=== PATIENT | female | born 1980 | race Caucasian/White ===

== ENCOUNTER 2017-07-11 09:56 | Emergency (ER) | payer BC, SELFPAY ==
[2017-07-11 10:12] VITALS: BP 136/92; PULSE 79; RESP 20; TEMP 36.6; O2SAT 100; BMI 23.3
--- NOTE | 2017-07-11 10:30 | HMH.EDUTC ---
[facility] [place] Impression: Sinusitis Qualifiers: Sinusitis location: maxillary Chronicity: acute Recurrence: not specified as recurrent Qualified Code(s): J01.00 - Acute maxillary sinusitis, unspecified Disposition: Home, Self-Care Condition on Discharge: Good Instructions: DI for Sinusitis Additional Instructions: Rest, fluids. F/U with Dr Olsen if not improving. Prescriptions: Brompheniramine/Pseudoephed/Dm [Bromfed DM Cough Syrup 5mL] 5 - 10 ml PO Q4HP PRN 10 Days #240 syrup PRN Reason: Cough Fluticasone Propionate [Flonase Allergy Relief NS] 1 spray NS BID 10 Days #1 bot predniSONE [Prednisone 20mg Tab] 20 mg PO BID 5 Days #10 tab Referrals: Allen Olsen MD [Primary Care Provider] - Time of Disposition: 10:38 Medical Decision Making - Rehan Inquiry Pt receiving controlled substance: No Vital Signs: 07/11/17 10:12 Temperature 97.8 F Temperature Source Oral Pulse Rate [Right Radial] 79 Respiratory Rate 20 Blood Pressure [Right Arm] 136/92 Blood Pressure Mean [Right Arm] 106 02 Sat by Pulse Oximetry 100 Oxygen Delivery Method Room Air [facility] [place] - General Stated complaint: Poss Sinus Infection Time Seen by Provider: 07/11/17 10:23 Mode of Arrival: Family Vehicle Source of Information: Patient Limitations: No Limitations Description of Symptoms (Recalled from Triage Doc. by RN): PT C/O SINUS PROBLEMS,COUGH, SORE THROAT. HEENT Symptoms (Recalled from RN notes): Yes (SORE THROAT,SINUS DRAINAGE) Resp Symptoms (Recalled from RN notes): Yes (COUGH) Skin Symptoms (Recalled from RN notes): No MS Symptoms (Recalled from RN notes): No Functional Status (Recalled from RN notes): NA - History of Present Illness Provider Complaint: Cough, sinus pain and pressure, sore throat, shortness of breath X 2 days. Headache. Denies ear pain. Denies fever. No vomiting or diarrhea. Onset (ago): day(s) (2) Location: head Radiation: non-radiation Relieving factors: medication Exacerbating factors: none Associated symptoms: cough, malaise, shortness of breath Treatments prior to arrival: other (Dayquil) - Related Data Previous Rx's Medication Instructions Recorded Brompheniramine/Pseudoephed/Dm 5 - 10 ml PO Q4HP PRN 10 Days #240 07/11/17 [Bromfed DM Cough Syrup 5mL] syrup Fluticasone Propionate [Flonase 1 spray NS BID 10 Days #1 bot 07/11/17 Allergy Relief NS] predniSONE [Prednisone 20mg 20 mg PO BID 5 Days #10 tab 07/11/17 Tab] Allergies Allergy/AdvReac Type Severity Reaction Status Date / Time morphine Allergy Verified 07/11/17 10:16 Penicillins Allergy Verified 07/11/17 10:16 - Worker's Comp Is this a Worker's Comp case?: No [facility] History I have reviewed the patient's past medical history: Yes Medical History: Denies:: Cancer, Diabetes Mellitus Type 1, Diabetes Mellitus Type 2, MRSA Amputation: No - Social History Smoking Status: Never smoker Alcohol Intake: never - Psychiatric History Expresses thoughts of harming self/others: None Suicide Plan Description: No Plan ROS Obtained: Yes All systems reviewed & no additional complaints - Constitutional Constitutional: Reports fatigue, Denies fever(s), Reports malaise - ENT Ears, Nose, Mouth, and Throat: Reports headache(s), Reports nasal congestion, Reports nasal discharge, Reports nasal obstruction, Reports pain with swallowing, Reports sinus pain, Reports sinus pressure, Reports sore throat - Respiratory Respiratory: Yes cough Physical Exam - General General appearance: alert, in no apparent distress - Head Head exam: atraumatic, normocephalic, normal inspection - Eye Eye exam: Present: normal appearance, PERRL, EOMI - ENT ENT exam: Present: normal exam, normal oropharynx, mucous membranes moist, TM's normal bilaterally, normal external ear exam - Expanded ENT Exam TM/Canal exam: Bilateral TM: effusion Nose exam: Present: sinus tenderness - Neck Neck exam: Present: normal insp
--- NOTE | 2017-07-11 10:34 | ED_ITS ---
[facility] [place] Clinical Impression: Sinusitis Qualifiers: Sinusitis location: maxillary Chronicity: acute Recurrence: not specified as recurrent Qualified Code(s): J01.00 - Acute maxillary sinusitis, unspecified Disposition: Home, Self-Care Condition on Discharge: Good Instructions: DI for Sinusitis Additional Instructions: Rest, fluids. F/U with Dr Olsen if not improving. Prescriptions: Brompheniramine/Pseudoephed/Dm [Bromfed DM Cough Syrup 5mL] 5 - 10 ml PO Q4HP PRN 10 Days #240 syrup PRN Reason: Cough Fluticasone Propionate [Flonase Allergy Relief NS] 1 spray NS BID 10 Days #1 bot predniSONE [Prednisone 20mg Tab] 20 mg PO BID 5 Days #10 tab Referrals: Allen Olsen MD [Primary Care Provider] - Time of Disposition: 10:38 Medical Decision Making - Rehan Inquiry Pt receiving controlled substance: No Vital Signs: 07/11/17 10:12 Temperature 97.8 F Temperature Source Oral Pulse Rate [Right Radial] 79 Respiratory Rate 20 Blood Pressure [Right Arm] 136/92 Blood Pressure Mean [Right Arm] 106 02 Sat by Pulse Oximetry 100 Oxygen Delivery Method Room Air [facility] [place] HPI - General Stated complaint: Poss Sinus Infection Time Seen by Provider: 07/11/17 10:23 Mode of Arrival: Family Vehicle Source of Information: Patient Limitations: No Limitations Description of Symptoms (Recalled from Triage Doc. by RN): PT C/O SINUS PROBLEMS ,COUGH, SORE THROAT. HEENT Symptoms (Recalled from RN notes): Yes (SORE THROAT,SINUS DRAINAGE) Resp Symptoms (Recalled from RN notes): Yes (COUGH) Skin Symptoms (Recalled from RN notes): No MS Symptoms (Recalled from RN notes): No Functional Status (Recalled from RN notes): NA - History of Present Illness Provider Complaint: Cough, sinus pain and pressure, sore throat, shortness of breath X 2 days. Headache. Denies ear pain. Denies fever. No vomiting or diarrhea. Onset (ago): day(s) (2) Location: head Radiation: non-radiation Relieving factors: medication Exacerbating factors: none Associated symptoms: cough, malaise, shortness of breath Treatments prior to arrival: other (Dayquil) - Related Data Previous Rx's Medication Instructions Recorded Brompheniramine/Pseudoephed/Dm 5 - 10 ml PO Q4HP PRN 10 Days #240 07/11/17 [Bromfed DM Cough Syrup 5mL] syrup Fluticasone Propionate [Flonase 1 spray NS BID 10 Days #1 bot 07/11/17 Allergy Relief NS] predniSONE [Prednisone 20mg 20 mg PO BID 5 Days #10 tab 07/11/17 Tab] Allergies Allergy/AdvReac Type Severity Reaction Status Date / Time morphine Allergy Verified 07/11/17 10:16 Penicillins Allergy Verified 07/11/17 10:16 - Worker's Comp Is this a Worker's Comp case?: No H History I have reviewed the patient's past medical history: Yes Medical History: Denies:: Cancer, Diabetes Mellitus Type 1, Diabetes Mellitus Type 2, MRSA Amputation: No - Social History Smoking Status: Never smoker Alcohol Intake: never - Psychiatric History Expresses thoughts of harming self/others: None Suicide Plan Description: No Plan ROS Obtained: Yes All systems reviewed & no additional complaints - Constitutional Constitutional: Reports fatigue, Denies fever(s), Reports malaise - ENT Ears, Nose, Mouth, and Throat: Reports headache(s), Reports nasal congestion, Reports nasal discharge, Reports nasal obstr
[2017-07-11 10:57] VITALS: BP 130/85; PULSE 82; RESP 18; TEMP 36.7; O2SAT 100
== END 2017-07-11 10:45 | disposition home or self-care (01) ==
PROVIDERS: Emergency Provider Physician Assistant; Family Provider Internal Medicine Adolescent Medicine; PCP Internal Medicine Adolescent Medicine
DX: J01.00 Acute maxillary sinusitis, unspecified (principal)
CPT/HCPCS: 99201

== ENCOUNTER → 2018-02-14 12:35 | Outpatient (CLI) | payer BC, SELFPAY ==
--- NOTE | 2018-02-14 12:40 | US_ITS ---
US transvaginal HISTORY: Pelvic pain, left lower quadrant pain ITS.REASON: pelvic pain ORDERING PHYSICIAN: Charlie Collado MD PATIENT AGE: 37 years Last menstrual period: 01/31/2018 FINDINGS: The uterus is 8 x 3.5 x 4.2 cm with a combined endometrial thickness of 8 mm. No uterine abnormality is evident. There are small nabothian cyst present. The left ovary is 3.2 x 2 cm and contains a 2 cm cyst. The right ovary is 2.3 x 1.6 cm and has an unremarkable appearance. No cul-de-sac fluid apparent. IMPRESSION: 2 cm left ovarian cyst otherwise negative pelvic ultrasound
== END ==
PROVIDERS: Family Provider Internal Medicine Adolescent Medicine; PCP Internal Medicine Adolescent Medicine; Visit Provider Obstetrics & Gynecology
DX: R10.2 Pelvic and perineal pain (principal)
CPT/HCPCS: 76830

== ENCOUNTER → 2018-06-21 09:27 | Outpatient (CLI) | payer BC, SELFPAY ==
[2018-06-21 09:48] LABS: Basophils % 0.4 % (0.1-2.0); Eosinophils # 0.1 K/mm3 (0.0-0.4); Hematocrit 37.1 % (37.0-47.0); Hemoglobin 12.1 g/dL (12.2-16.2); Lymphocytes # 1.3 K/mm3 (0.7-4.5); Lymphocytes % 24.8 % (10-50); Mean Corpuscular HGB Conc 32.7 g/dL (31.8-35.4); Mean Corpuscular Hemoglobin 25.5 pg (27.0-31.2); Mean Corpuscular Volume 78.2 fl (81-99); Mean Platelet Volume 7.7 fl (7.4-10.4); Monocytes # 0.3 K/mm3 (0.1-1.0); Monocytes % 4.7 % (1.7-9.3); Neutrophils # 3.7 K/mm3 (1.8-7.8); Neutrophils % 68.1 % (37.0-80.0); Platelet Count 191 K/mm3 (142-424); Red Blood Count 4.74 M/mm3 (4.20-5.40); Red Cell Distribution Width 14.9 % (11.5-17.5); White Blood Count 5.4 K/mm3 (4.8-10.8)
[2018-06-21 10:56] LABS: Thyroid Stimulating Hormone 1.61 uIU/ml (0.358-3.740)
[2018-06-22 06:15] LABS: DHEA-Sulfate 323.3 ug/dL (57.3-279.2); Prolactin 18.5 ng/mL (4.8-23.3)
[2018-06-22 08:10] LABS: Estradiol 108.9 pg/mL (.)
[2018-06-23 07:32] LABS: Testosterone,Free 2.2 pg/mL (0.0-4.2)
== END ==
PROVIDERS: Visit Provider Obstetrics & Gynecology
DX: N97.9 Female infertility, unspecified (principal)
CPT/HCPCS: 36415; 82626; 82670; 83002; 84146; 84402; 84443; 85025

== ENCOUNTER → 2018-07-04 14:29 | Outpatient (CLI) | payer BC, SELFPAY ==
[2018-07-06 08:31] LABS: DHEA-Sulfate 288.7 ug/dL (57.3-279.2)
[2018-07-06 15:01] LABS: FSH 8.6 mIU/mL (.)
== END ==
PROVIDERS: Visit Provider Obstetrics & Gynecology
DX: N97.9 Female infertility, unspecified (principal)
CPT/HCPCS: 36415; 82626; 83001; 83002

== ENCOUNTER → 2018-07-18 09:24 | Outpatient (CLI) | payer BC, SELFPAY ==
--- NOTE | 2018-07-18 09:30 | CT_ITS ---
CT abdomen pelvis wo/w con CLINICAL INDICATION: Elevated DHEA levels ITS.REASON: infertility ORDERING PHYSICIAN: Charlie Collado MD PATIENT AGE: 38 years COMPARISON: None TECHNIQUE: Axial images obtained without and with contrast with sagittal and coronal reformats. All CT scans at the facility use one or more dose reduction, viz: automated exposure control, ma/kV adjustment per patient size (including targeted exams where dose is matched to indication, i.e. head), or iterative reconstruction technique. PROCEDURE: Oral Contrast: None IV Contrast: 75 mL's Optiray 350. FINDINGS: No acute finding in the lung bases. The liver, spleen, adrenal glands, gallbladder, and pancreas have an unremarkable appearance. No renal or ureteral calculi. No hydronephrosis. No evidence of appendicitis, intestinal obstruction, or free air.. No abnormal fluid collections are evident. The cervix is somewhat prominent and there is also prominence of the hypoattenuating endometrial canal. Please correlate with gynecological exam and patient's phase of menstruation. There is a small left ovarian cyst at 2 cm. Uterus is anteverted. No acute bony anomalies are evident. IMPRESSION: 1. No acute abdominal findings. 2. No evidence of adrenal nodule or mass. 3. Mild prominence of the cervix and prominent hypoattenuation of the endometrial canal. Please correlate with patient's gynecological exam and phase of menstruation. The uterus is anteverted.
== END ==
PROVIDERS: PCP Family Medicine; Visit Provider Obstetrics & Gynecology
DX: E27.49 Other adrenocortical insufficiency (principal)
CPT/HCPCS: 74178; Q9967

== ENCOUNTER → 2019-01-10 12:51 | Outpatient (CLI) | payer BC, SELFPAY ==
--- NOTE | 2019-01-10 12:52 | US_ITS ---
PROCEDURE: US TRANSVAGINAL CLINICAL INDICATION: dub, pelvic pain Dysfunctional uterine bleeding COMPARISON: TRANVAG US transvaginal from 02/14/2018 FINDINGS: The uterus is 8.5 x 3.7 x 5 cm with a combined endometrial thickness of 8 mm. No mass evident. Homogeneous echogenicity of the uterus. The right ovary is 2.8 x 1.9 cm and contains a 1.7 cm cyst. The left ovary has an unremarkable appearance at 2.6 x 1.9 cm. No cul-de-sac fluid. IMPRESSION: Small right ovarian cyst otherwise negative pelvic ultrasound Dictated by: Diallo Marmolejo MD 01/10/2019 17:37 Electronically signed by Diallo Marmolejo MD in [place] 01/10/2019 17:37
== END ==
PROVIDERS: PCP Family Medicine; Visit Provider Obstetrics & Gynecology
DX: N93.8 Other specified abnormal uterine and vaginal bleeding (principal)
CPT/HCPCS: 76830

== ENCOUNTER 2021-05-26 08:59 | Emergency (ER) | payer BC, SELFPAY ==
[2021-05-26 09:10] VITALS: BP 134/91; PULSE 69; RESP 18; TEMP 36.6; O2SAT 99; BMI 22.6
--- NOTE | 2021-05-26 09:41 | HMH.EDUTC ---
[facility] [place] Disposition Clinical Impression: Vertigo Disposition: Home, Self-Care Condition on Discharge: Good Instructions: Vertigo, Meclizine Additional Instructions: *Monitor Temp, Over the counter Motrin or Tylenol as directed/as needed Tylenol every 4 hours and Motrin every 6 hours (as long as your family doctor has told you that you can take it) for fever or pain. and straight to ER if unable to lower temp less than 101.0 after medication given *Warm salt water gargles may help to soothe the throat *Throat Lozenges *Warm fluids like tea with honey may help to soothe the throat *Sleep elevated *Humidifier/Vaporizer Your throat swab was sent for culture. Those results are typically sent to your primary care. Be sure to follow up in 2-3 days with your family doctor/primary care physician if no improvement so they can review those result and treat if necessary. If you don?t have a primary care doctor, I recommend you get one but in the mean time, you will have to return to a walk in clinic Follow up IMMEDIATELY for new or worsening symptoms or no Noticeable improvement over the next 48-72 hours. 911 for difficulty breathing or swallowing You were tested for today for COVID19 your test result should be back in the next 24-72 hours, you may check your results on the [facility] My Health Portal If you have trouble logging on you may call support If you are positive someone from the Hospital will be calling you Make sure to take your Vitamins Vit. C Vit D and Zinc if you can take them Prescriptions: Meclizine HCl [Antivert 25mg tablet] 25 mg PO Q8HP PRN #15 tab PRN Reason: Vertigo Transmission Status: Received by [id number] methylPREDNISolone [Medrol 4mg tab] 4 mg PO DIRECTED #21 tab Transmission Status: Received by [id number] Azithromycin [Z-Lyle 250mg Tab] 250 mg PO DIRECTED #6 tab Transmission Status: Received by [id number] Ondansetron [Zofran 4mg ODT] 4 mg PO TIDP PRN #9 tab PRN Reason: Nausea Transmission Status: Received by [id number] Referrals: Eliud Greenwood [Primary Care Provider] - As needed Forms: Work/School Release Medical Decision Making - Rehan Inquiry Pt receiving controlled substance: No Rehan was queried for this patient: No Vital Signs: 05/26/21 09:10 05/26/21 10:15 Temperature 97.9 F 97.9 F Temperature Source Oral Pulse Rate 69 Pulse Rate [Right Brachial] 69 Respiratory Rate 18 18 Blood Pressure 134/91 H Blood Pressure [Right Arm] 134/91 H Blood Pressure Mean [Right Arm] 105 Blood Pressure Source [Right Arm] Automatic Cuff Blood Pressure Position [Right Arm] Sitting 02 Sat by Pulse Oximetry 99 Oxygen Delivery Method Room Air Orders (Tests/Meds): ED MEDICATIONS Discontinued Medications Generic Name Dose Route Start Last Admin Trade Name Freq PRN Reason Stop Dose Admin Meclizine HCl 25 mg 05/26/21 09:42 05/26/21 09:47 Meclizine 25mg Tablet PO 05/26/21 09:43 25 mg ONCE ONE Administration Medical Decision Narrative: Denies Patient state that vertigo/dizziness is much improved after medicaiton Discussed with patient about transfer to the ED for further work up and evaluation and patient declined states that she is feeling better and will return to ED if any worsening of symptoms Family aware of risks and advised they would stay with her an bring her back if any changes in symptoms or behavior [facility] [place] HPI - General Stated complaint: dizzy, nausea Time Seen by Provider: 05/26/21 09:41 Mode of Arrival: Ambulatory Source of Information: Patient, Spouse Limitations: No Limitations Description of Symptoms (Recalled from Triage Doc. by RN): PATIENT C/O DIZZINESS AND NAUSEA SINCE THIS MORNING HEENT Symptoms (Recalled from RN notes): Yes Resp Symptoms (Recalled from RN notes): No Skin Symptoms (Recalled from RN notes): No MS Symptoms (Recalled from RN notes): No Functional Status (Recalled from RN notes): W
[2021-05-26 10:15] VITALS: BP 134/91; PULSE 69; RESP 18; TEMP 36.6; O2SAT 99
== END 2021-05-26 10:43 | disposition home or self-care (01) ==
PROVIDERS: Emergency Provider Nurse Practitioner; PCP Family Medicine
DX: R42 Dizziness and giddiness (principal)
CPT/HCPCS: 99202; G0463

== ENCOUNTER 2021-11-15 11:22 | Emergency (ER) | payer BC, SELFPAY ==
--- NOTE | 2021-11-15 11:50 | HMH.EDGENADL ---
ED Disposition Clinical Impression: Upper abdominal pain Gastritis Qualifiers: Gastritis type: unspecified gastritis Chronicity: acute Gastritis bleeding: without bleeding Qualified Code(s): K29.00 - Acute gastritis without bleeding Disposition: Home, Self-Care Condition on Discharge: Good Instructions: DI for Gastritis, DI for Gastric Ulcer, DI for Acute Abdominal Pain Additional Instructions: You have been evaluated for abdominal pain. You have been diagnosed with gastritis, inflammation of the stomach lining. Please start taking omeprazole. Gastritis possibly due to an ulcer. Please follow-up with your primary care doctor in 1 to 2 days for symptom recheck. Follow-up with gastroenterology when available, you may need upper endoscopy. Return to the emergency department at once for any new or worsening symptoms, pain, fever, vomiting, other concerns. Prescriptions: Omeprazole [Omeprazole 20mg Capsule] 20 mg PO DAILY #30 cap Transmission Status: Received by [id number] Referrals: Eliud Greenwood [Primary Care Provider] - Time of Disposition: 13:29 - Critical Care Critical Care Time: No Attestation: On 11/15/21, the high probability of a clinically significant, sudden or life threatening deterioration of the following system(s) required my full and direct attention, intervention and personal management. The time I documented below is in addition to time spent performing reported procedures but includes the following listed in this critical care notation. Medical Decision Making - Medical Records Medical records reviewed: Yes: I reviewed the patient's medical records. - Rehan Inquiry Pt receiving controlled substance: No Vital Signs: 11/15/21 11:52 11/15/21 11:56 11/15/21 12:00 Temperature 98.1 F Temperature Source Oral Pulse Rate 73 79 Pulse Rate [Left Radial] 89 Respiratory Rate 16 18 18 Blood Pressure 138/95 H 124/89 Blood Pressure [Left Arm] 138/95 H Blood Pressure Mean 109 99 Blood Pressure Mean [Left Arm] 109 Blood Pressure Source [Left Arm] Automatic Cuff Blood Pressure Position [Left Arm] Sitting 02 Sat by Pulse Oximetry 100 100 99 Oxygen Delivery Method Room Air 11/15/21 13:00 11/15/21 14:00 Temperature Temperature Source Pulse Rate 68 69 Pulse Rate [Left Radial] Respiratory Rate 18 18 Blood Pressure 114/88 110/72 Blood Pressure [Left Arm] Blood Pressure Mean 97 84 Blood Pressure Mean [Left Arm] Blood Pressure Source [Left Arm] Blood Pressure Position [Left Arm] 02 Sat by Pulse Oximetry 99 100 Oxygen Delivery Method - Lab Data Lab Results 11/15/21 11:50: WBC 10.2, RBC 5.70 H, Hgb 16.6 H, Hct 47.1 H, MCV 82.6, MCH 29.1, MCHC 35.2, RDW 12.0, Plt Count 216, MPV 7.6, Neut % (Auto) 81.1 H, Lymph % (Auto) 12.5, Carlton % (Auto) 4.0, Eos % (Auto) 1.6, Baso % (Auto) 0.8, Neut # (Auto) 8.3 H, Lymph # (Auto) 1.3, Carlton # (Auto) 0.4, Eos # (Auto) 0.2, Baso # (Auto) 0.1 11/15/21 11:50: Sodium 139, Potassium 4.1, Chloride 107, Carbon Dioxide 23, Anion Gap 13.1, BUN 13, Creatinine 0.80, Estimated Creat Clear 101, Estimated GFR 79, Est GFR ( Amer) 96, Glucose 112 H, Calcium 9.3, Total Bilirubin 1.2, AST 63 H, ALT 31, Alkaline Phosphatase 49, Total Protein 7.5, Albumin 4.6, Globulin 2.9, Albumin/Globulin Ratio 1.6, Lipase 92 11/15/21 11:50: Serum HCG, Qual Negative 11/15/21 12:25: SARS-CoV-2 (PCR) Not detected, Influenza A Untype (PCR) Not detected, Influenza Type B (PCR) Not detected Result diagrams: 11/15/21 11:50 11/15/21 11:50 Orders (Tests/Meds): ED MEDICATIONS Discontinued Medications Generic Name Dose Route Start Last Admin Trade Name Freq PRN Reason Stop Dose Admin Hydromorphone HCl 0.5 mg 11/15/21 11:53 11/15/21 11:59 Hydromorphone 2mg/Ml Syringe IV 11/15/21 11:54 0.5 mg ONCE ONE Administration Sodium Chloride 1,000 mls @ 999 mls/hr 11/15/21 12:00 11/15/21 11:59 Sod Chlor 0.9% 1000ml Bag IV 11/15/21 13:
[2021-11-15 11:52] VITALS: BP 138/95; PULSE 89; RESP 16; TEMP 36.7; O2SAT 100; BMI 24.3
[2021-11-15 11:56] VITALS: BP 138/95; PULSE 73; RESP 18; O2SAT 100
[2021-11-15 11:56] LABS: Basophils # 0.1 K/mm3 (0-0.2); Basophils % 0.8 % (0.1-2.0); Eosinophils # 0.2 K/mm3 (0.0-0.4); Eosinophils % 1.6 % (0.1-12.0); Hematocrit 47.1 % (37.0-47.0); Hemoglobin 16.6 g/dL (12.2-16.2); Lymphocytes # 1.3 K/mm3 (0.7-4.5); Lymphocytes % 12.5 % (10-50); Mean Corpuscular HGB Conc 35.2 g/dL (31.8-35.4); Mean Corpuscular Hemoglobin 29.1 pg (27.0-31.2); Mean Corpuscular Volume 82.6 fl (81-99); Mean Platelet Volume 7.6 fl (7.4-10.4); Monocytes # 0.4 K/mm3 (0.1-1.0); Neutrophils # 8.3 K/mm3 (1.8-7.8); Neutrophils % 81.1 % (37.0-80.0); Platelet Count 216 K/mm3 (142-424); White Blood Count 10.2 K/mm3 (4.8-10.8)
[2021-11-15 12:00] VITALS: BP 124/89; PULSE 79; RESP 18; O2SAT 99
[2021-11-15 12:00] LABS: Chloride 107 mmol/L (98-107)
--- NOTE | 2021-11-15 12:00 | PC.NURSE ---
pr brought over from [facility] to room 10 in the ed. at the bedside on arrival for eval.
[2021-11-15 12:01] LABS: Potassium 4.1 mmoL/L (3.5-5.1); Sodium 139 mmol/L (136-145)
[2021-11-15 12:02] LABS: Albumin Level 4.6 g/dl (3.5-5.0)
[2021-11-15 12:03] LABS: Alanine Aminotransferase 31 U/L (12-78); Aspartate Amino Transferase 63 U/L (14-36); Blood Urea Nitrogen 13 mg/dl (7-17); Creatinine Clearance Estimated 101 mL/min (50-200); Estimated Glomerular Filt Rate 79 ml/min (>60); GFR (African American) 96 ML/MIN (>60)
[2021-11-15 12:04] LABS: Albumin/Globulin Ratio 1.6 (1.1-1.8); Alkaline Phosphatase 49 U/L (38-126); Anion Gap 13.1 mEq/L (5-15); Bilirubin,Total 1.2 mg/dl (0.2-1.3); Calcium 9.3 mg/dl (8.4-10.2); Carbon Dioxide 23 mmol/L (22.0-30.0); Globulin 2.9 g/dL (1.3-3.2); Glucose 112 mg/dl (74-100); Lipase 92 U/L (23-300); Total Protein,Serum 7.5 g/dl (6.3-8.2)
--- NOTE | 2021-11-15 12:04 | PC.NURSE ---
PT WAS GIVEN TORADOL AND ZOFRAN FOR PAIN PT WAS STILL YELLING OUT IN PAIN SO VERBAL ORDER TO GIVE DILAUDID 0.5MG IV AFTER THAT PT RESTING MORE QUIETLY FAMILY AT BS
[2021-11-15 12:07] LABS: HCG Qualitative, Serum Negative (Negative)
--- NOTE | 2021-11-15 12:14 | CT_ITS ---
PROCEDURE INFORMATION: Exam: CT Abdomen And Pelvis With Contrast Exam date and time: 11/15/2021 12:18 PM Age: 41 years old Clinical indication: Abdominal pain; Generalized; Additional info: Upper abdominal pain TECHNIQUE: Imaging protocol: Computed tomography of the abdomen and pelvis with contrast. Radiation optimization: All CT scans at this facility use at least one of these dose optimization techniques: automated exposure control; mA and/or kV adjustment per patient size (includes targeted exams where dose is matched to clinical indication); or iterative reconstruction. Contrast material: ISOVUE; Contrast volume: 75 ml; Contrast route: IV; COMPARISON: [id number] CT abdomen pelvis wo/w con 07/18/2018 10:02 AM FINDINGS: Lungs: Hyperinflation , mild interstitial prominence, and chronic granulomatous disease. Liver: No focal hepatic mass. Gallbladder and bile ducts: Unremarkable gallbladder. Pancreas: Mild pancreatic ductal dilatation, without focal mass. Spleen: Spleen upper limits of normal size. Adrenal glands: Unremarkable adrenals. Kidneys and ureters: 8 mm left renal cyst, with an additional 3 mm nodular hypodensity in the inferior left kidney. No hydronephrosis. Stomach and bowel: Gastric wall thickening, which can be better evaluated with endoscopy if clinically indicated. Small bowel wall thickening in a pattern of enteritis. Prominent stool. Diverticula, without pericolonic inflammation. Appendix: No acute appendicitis. Intraperitoneal space: Mesenteric edema and intraperitoneal fluid. Vasculature: Normal caliber of the abdominal aorta. Lymph nodes: Subcentimeter lymph nodes. Urinary bladder: Normal bladder morphology. Reproductive: Involuted 1.3 cm left ovarian cyst. Bones/joints: Marginal osteophytes. 6 mm bone island in the left ilium. Soft tissues: Injection granuloma. IMPRESSION: 1. Gastric wall thickening, which can be better evaluated with endoscopy if clinically indicated. 2. Small bowel wall thickening in a pattern of enteritis. 3. Mesenteric edema and intraperitoneal fluid. 4. Additional findings as described above. COMMENTS: Consistent with the [employer]'s Incidental Findings Committee white paper (J Am Montserrat Radiol 2018): Any incidental renal lesion less than 1 cm or classified as too small to characterize, or any incidental cystic renal lesion characterized as simple-appearing, is likely benign. No follow-up imaging is recommended for these lesions per consensus recommendations based on imaging criteria.
--- NOTE | 2021-11-15 12:27 | PC.NURSE ---
COVID swab sent to lab. Pt to CT via w/c. Pt states that meds have helped her pain and nausea.
[2021-11-15 12:33] LABS: Coronavirus 19, PCR Not Detected (NotDetected); Influenza A, PCR Not Detected (NotDetected); Influenza B, PCR Not Detected (NotDetected)
--- NOTE | 2021-11-15 12:36 | PC.NURSE ---
Pt has returned from CT. [employer] placed pt back on monitor.
[2021-11-15 13:00] VITALS: BP 114/88; PULSE 68; RESP 18; O2SAT 99
[2021-11-15 14:00] VITALS: BP 110/72; PULSE 69; RESP 18; O2SAT 100
[2021-11-15 14:38] VITALS: BP 112/80; PULSE 67; RESP 18; TEMP 36.7; O2SAT 100
== END 2021-11-15 14:43 | disposition home or self-care (01) ==
LOC: UTC 11:25 → ER 11:48
PROVIDERS: Emergency Provider Emergency Medicine; PCP Family Medicine
DX: K29.00 Acute gastritis without bleeding (principal); R10.10 Upper abdominal pain, unspecified
CPT/HCPCS: 74177; 80053; 83690; 84703; 85025; 96361; 96374; 96375; 99284; C9803; J2405; Q9967; U0003; U0005

== ENCOUNTER 2022-10-10 12:44 | Emergency (ER) | payer BC, SELFPAY ==
[2022-10-10] VITALS (10 sets, daily range): BP systolic 109–148; BP diastolic 69–97; PULSE 56–86; RESP 16–20; TEMP 36.4–36.6; O2SAT 96–100; BMI 25.8
--- NOTE | 2022-10-10 12:59 | CT_ITS ---
PROCEDURE INFORMATION: Exam: CT Abdomen And Pelvis With Contrast Exam date and time: 10/10/2022 1:49 PM Age: 42 years old Clinical indication: Nausea and other: Diarrhea; Prior surgery; Surgery date: <1 month; Surgery type: Partial colectomy 3 weeks ago; Additional info: Abdominal pain, nausea, diarrhea TECHNIQUE: Imaging protocol: Computed tomography of the abdomen and pelvis with contrast. Radiation optimization: All CT scans at this facility use at least one of these dose optimization techniques: automated exposure control; mA and/or kV adjustment per patient size (includes targeted exams where dose is matched to clinical indication); or iterative reconstruction. Contrast material: ISOVUE; Contrast volume: 75 ml; Contrast route: IV; REPORTING DATA: Count of CT and Cardiac NM exams in prior 12 months: This patient has received [address] and 0 known cardiac nuclear medicine studies in the 12 months prior to the current study. COMPARISON: CT ABDOMEN PELVIS W CON 11/15/2021 12:18 PM FINDINGS: Liver: Normal. No mass. Gallbladder and bile ducts: Normal. No calcified stones. No ductal dilation. Pancreas: Normal. No ductal dilation. Spleen: Normal. No splenomegaly. Adrenal glands: Normal. No mass. Kidneys and ureters: Normal. No hydronephrosis. Stomach and bowel: Postsurgical changes compatible with partial large bowel resection. Mild pericolonic fat stranding in postsurgical region without discrete fluid collection. Nonobstructive bowel gas pattern. Appendix: No evidence of appendicitis. Intraperitoneal space: Unremarkable. No free air. No significant fluid collection. Vasculature: Unremarkable. No abdominal aortic aneurysm. Lymph nodes: Reactive retroperitoneal/mesenteric lymph nodes without lymphadenopathy. Urinary bladder: Unremarkable as visualized. Reproductive: Unremarkable as visualized. Bones/joints: Unremarkable. No acute fracture. Soft tissues: Unremarkable. IMPRESSION: 1. Mild postsurgical changes. 2. Reactive lymph nodes without lymphadenopathy.
--- NOTE | 2022-10-10 13:08 | HMH.EDGENADL ---
Discharge Plan Disposition Patient Disposition: Home, Self-Care Condition: Fair Prescriptions Prescriptions: New dicyclomine 20 mg tablet 20 mg PO QID PRN (Reason: abdominal pain) Qty: 14 0RF ondansetron 4 mg tablet,disintegrating 4 mg PO Q6H PRN (Reason: nausea and vomiting) Qty: 10 0RF No Action amitriptyline 10 mg tablet 10 mg PO DAILY losartan 50 mg tablet 50 mg PO DAILY Label Comments: TAKE 1 TABLET BY MOUTH EVERY DAY norethindrone-e.estradiol-iron 1 mg-10 mcg (24)/10 mcg (2) tablet 1 tab PO DAILY Qty: 28 11RF Referrals Follow up/Referrals: Eliud Greenwood MD [Primary Care Provider] - See instructions Activity Restrictions/Add. Instructions Additional Instructions/Restrictions: You have been evaluated for lower abdominal pain. This is possibly due to inflammation, after surgery. Also possibly due to viral illness. Please monitor your symptoms closely. [place] diet. Take Bentyl for cramps. Zofran for nausea. Follow-up with your primary care doctor and your primary colorectal surgeon. Return to the emergency department at once if pain returns or if you develop fevers, chills, nausea, vomiting, any other concerns. Clinical Impressions Clinical Impression: Intermittent lower abdominal pain, Post-operative pain Instructions Patient Instructions: DI for Acute Abdominal Pain Discharge ED Provider: Joy Padilla Adult HPI General Chief complaint: Abdominal Pain Stated complaint: abd pain,diarrhea, colon janett September 15 Time Seen by Provider: 10/10/22 12:46 Mode of Arrival: Wheelchair Source of Information: Patient Limitations: No Limitations Description of Symptoms (Recalled from ER Triage Doc. by RN): pt to the ED with severe lower abd. pain, nausea and diarrhea since wednesday. pt recently had a laproscropic colon resection on 09/15. History of Present Illness HPI narrative: 42-year-old female presenting to the emergency department abdominal pain. Pain started initially on , 2 days ago. It was described as cramping, intermittent. Over the last day, the pain has become much worse. It is now located in the lower abdomen, midline and radiating to both sides. Pain is sharp, cramping. She had diarrhea. No nausea, vomiting. No fevers, chills, cough, shortness of breath. She has a history of colon cancer, had a partial colectomy on 09/15/2022 at [facility] in [place]. Did well postoperatively. Is now eating a normal diet. Related Data Home Medications Medication Instructions Recorded Confirmed amitriptyline 10 mg tablet 10 mg PO DAILY MIGRAINES 02/15/20 05/26/22 losartan 50 mg tablet 50 mg PO DAILY 05/26/22 05/26/22 Previous Rx's Medication Instructions Recorded norethindrone 1 mg-ethinyl 1 tab PO DAILY #28 tabs 05/26/22 estradiol 10 mcg (24)-iron 10 mcg(2) tablet dicyclomine 20 mg tablet 20 mg PO QID PRN abdominal pain 10/10/22 #14 tabs ondansetron 4 mg disintegrating 4 mg PO Q6H PRN nausea and 10/10/22 tablet vomiting #10 tabs Allergies Allergy/AdvReac Type Severity Reaction Status Date / Time morphine Allergy Verified 05/26/22 14:52 Penicillins Allergy Verified 05/26/22 14:52 [facility] Disclaimer: The information contained in this section may have been updated after the patient was seen, as this information can be updated by other users. Medical History (Updated 10/10/22 @ 17:56 by Joy Padilla DO) High blood pressure Hx of migraines Surgical History (Updated 05/26/22 @ 15:16 by Micheline Barrios MD) H/O LEEP [place] teeth extracted Family History Mother Cancer Other Diabetes Social History Smoking Status: Never smoker alcohol intake: never substance use type: denies use current occupational status: other Travel in the last 8 weeks: None ROS Obtained: Yes All systems reviewed & no additional com
[2022-10-10 13:15] LABS: Basophils % 0.3 % (0.1-2.0); Eosinophils # 0.2 K/mm3 (0.0-0.4); Eosinophils % 2.1 % (0.1-12.0); Hematocrit 44.4 % (37.0-47.0); Hemoglobin 14.5 g/dL (12.2-16.2); Lymphocytes # 1.9 K/mm3 (0.7-4.5); Lymphocytes % 19.4 % (10-50); Mean Corpuscular HGB Conc 32.7 g/dL (31.8-35.4); Mean Corpuscular Hemoglobin 27.7 pg (27.0-31.2); Mean Corpuscular Volume 84.5 fl (81-99); Monocytes # 0.5 K/mm3 (0.1-1.0); Monocytes % 5.3 % (1.7-9.3); Neutrophils # 7.2 K/mm3 (1.8-7.8); Neutrophils % 72.9 % (37.0-80.0); Platelet Count 246 K/mm3 (142-424); Red Blood Count 5.25 M/mm3 (4.20-5.40); Red Cell Distribution Width 12.5 % (11.5-17.5); White Blood Count 9.9 K/mm3 (4.8-10.8)
[2022-10-10 13:20] LABS: Alanine Aminotransferase 28 U/L (12-78); Albumin Level 4.5 g/dl (3.5-5.0); Albumin/Globulin Ratio 1.5 (1.1-1.8); Alkaline Phosphatase 60 U/L (38-126); Anion Gap 17.9 mEq/L (5-15); Aspartate Amino Transferase 63 U/L (14-36); Bilirubin,Total 0.9 mg/dl (0.2-1.3); Blood Urea Nitrogen 9 mg/dl (7-17); Calcium 8.8 mg/dl (8.4-10.2); Carbon Dioxide 22 mmol/L (22.0-30.0); Chloride 103 mmol/L (98-107); Creatinine Clearance Estimated 106 mL/min (50-200); Estimated Glomerular Filt Rate 79 ml/min (>60); GFR (African American) 96 ML/MIN (>60); Glucose 81 mg/dl (74-100); Lipase 106 U/L (23-300); Potassium 3.9 mmoL/L (3.5-5.1); Sodium 139 mmol/L (136-145); Total Protein,Serum 7.5 g/dl (6.3-8.2)
[2022-10-10 13:25] LABS: Lactic Acid 3.1 mmol/L (0.7-2.1)
[2022-10-10 13:26] LABS: Microscopic, Urine URINE MICROSCOPIC (MICROSCOPIC)
[2022-10-10 13:28] LABS: Appearance,Urine CLEAR (Clear); Bilirubin,Urine Negative (Negative); Blood, Urine 1+ (Negative); Color,Urine YELLOW (Yellow); Glucose,Urine (UA) Negative (Negative); Ketones,Urine Negative (Negative); Leukocyte Esterase,Urine Negative (Negative); Nitrate,Urine Negative (Negative); Protein,Urine Negative (Negative); Specific Gravity, Urine 1.025 (1.005-1.030); Urobilinogen,Urine 0.2 EU/dl (0.2)
[2022-10-10 13:40] LABS: HCG Qualitative, Serum Negative (Negative)
[2022-10-10 13:42] LABS: Bacteria,Urine Trace /lpf; Squamous Epithelial Cell,Urine Occasional #/hpf (0-5)
--- NOTE | 2022-10-10 15:03 | PC.NURSE ---
placed call to [facility] for Dr Feliz with colorectal. images were power shared
--- NOTE | 2022-10-10 15:26 | PC.NURSE ---
Dr Padilla speaking with Dr Feliz at [facility]
--- NOTE | 2022-10-10 16:31 | PC.NURSE ---
LACTIC DRAWN AND SENT TO LAB
[2022-10-10 17:11] LABS: Reflex Lactic Add Lactic Reflex
[2022-10-10 17:20] LABS: Lactic Acid Follow Up (RFLX 1) 0.8 mmol/L (0.7-2.1)
== END 2022-10-10 18:10 | disposition home or self-care (01) ==
PROVIDERS: Emergency Provider Emergency Medicine; PCP Family Medicine
DX: R10.30 Lower abdominal pain, unspecified (principal); G89.18 Other acute postprocedural pain; R11.0 Nausea; R19.7 Diarrhea, unspecified
CPT/HCPCS: 74177; 80053; 81001; 83605; 83690; 84703; 85025; 87045; 96374; 96375; 99285; J2405; Q9967

== ENCOUNTER 2023-04-30 12:09 | Outpatient (CLI) | payer BC, SELFPAY ==
[2023-04-30 12:50] LABS: Basophils # 0.1 K/mm3 (0-0.2); Basophils % 1.2 % (0.1-2.0); Eosinophils # 0.2 K/mm3 (0.0-0.4); Eosinophils % 2.5 % (0.1-12.0); Hematocrit 45.3 % (37.0-47.0); Hemoglobin 15.6 g/dL (12.2-16.2); Lymphocytes # 2.2 K/mm3 (0.7-4.5); Lymphocytes % 32.1 % (10-50); Mean Corpuscular HGB Conc 34.4 g/dL (31.8-35.4); Mean Corpuscular Hemoglobin 29.9 pg (27.0-31.2); Mean Corpuscular Volume 86.8 fl (81-99); Mean Platelet Volume 8.8 fl (7.4-10.4); Monocytes # 0.3 K/mm3 (0.1-1.0); Monocytes % 3.8 % (1.7-9.3); Neutrophils # 4.1 K/mm3 (1.8-7.8); Neutrophils % 60.5 % (37.0-80.0); Platelet Count 190 K/mm3 (142-424); Red Blood Count 5.22 M/mm3 (4.20-5.40); Red Cell Distribution Width 12.5 % (11.5-17.5); White Blood Count 6.8 K/mm3 (4.8-10.8)
[2023-04-30 12:51] LABS: Chloride 104 mmol/L (98-107)
[2023-04-30 12:52] LABS: Potassium 3.9 mmoL/L (3.5-5.1); Sodium 138 mmol/L (136-145)
[2023-04-30 12:54] LABS: Alanine Aminotransferase 24 U/L (12-78); Aspartate Amino Transferase 39 U/L (14-36); Blood Urea Nitrogen 18 mg/dl (7-17); Estimated Glomerular Filt Rate 69 ml/min (>60); GFR (African American) 83 ML/MIN (>60)
[2023-04-30 12:55] LABS: Albumin Level 4.7 g/dl (3.5-5.0); Albumin/Globulin Ratio 1.5 (1.1-1.8); Alkaline Phosphatase 46 U/L (38-126); Anion Gap 12.9 mEq/L (5-15); Calcium 8.7 mg/dl (8.4-10.2); Carbon Dioxide 25 mmol/L (22.0-30.0); Globulin 3.1 g/dL (1.3-3.2); Glucose 86 mg/dl (74-100); Total Protein,Serum 7.8 g/dl (6.3-8.2)
== END 2023-04-30 23:59 ==
LOC: LAB 12:10
PROVIDERS: Internal Medicine Medical Oncology; PCP Family Medicine; Visit Provider Family Medicine
DX: Z01.812 Encounter for preprocedural laboratory examination (principal); C18.9 Malignant neoplasm of colon, unspecified
CPT/HCPCS: 36415; 80053; 82378; 85025

== ENCOUNTER 2023-05-02 17:24 | Emergency (ER) | payer BC, SELFPAY ==
[2023-05-02 17:40] VITALS: BP 125/77; PULSE 80; RESP 18; TEMP 36.6; O2SAT 99; BMI 25.8
--- NOTE | 2023-05-02 17:46 | EXP.UTC ---
Discharge Plan Disposition Patient Disposition: Home, Self-Care Condition: Good Prescriptions Prescriptions: New benzonatate 100 mg capsule 100 mg PO TID PRN (Reason: cough) Qty: 30 0RF No Action losartan 50 mg tablet 50 mg PO DAILY Patient Comments: TAKE 1 TABLET BY MOUTH EVERY DAY norethindrone-e.estradiol-iron 1 mg-10 mcg (24)/10 mcg (2) tablet 1 tab PO DAILY Qty: 28 11RF Linzess 72 mcg Capsule 72 mcg PO DAILY Referrals Follow up/Referrals: Eliud Greenwood MD [Primary Care Provider] - See instructions Activity Restrictions/Add. Instructions Additional Instructions/Restrictions: *Monitor Temp, Over the counter Motrin or Tylenol as directed/as needed Tylenol every 4 hours and Motrin every 6 hours (as long as your family doctor has told you that you can take it) for fever or pain. and straight to ER if unable to lower temp less than 101.0 after medication given *Warm salt water gargles may help to soothe the throat *Throat Lozenges? *Warm fluids like tea with honey may help to soothe the throat? *Sleep elevated *Humidifier/Vaporizer *Tessalon Perles (Benzonatate) for cough Your throat swab was sent for culture. Those results are typically sent to your primary care. Be sure to follow up in 2-3 days with your family doctor/primary care physician if no improvement so they can review those result and treat if necessary. If you don?t have a primary care doctor, I recommend you get one but in the mean time, you will have to return to a walk in clinic Follow up IMMEDIATELY for new or worsening symptoms or no Noticeable improvement over the next 48-72 hours. 911 for difficulty breathing or swallowing You were tested for today for Upper Respiratory Panel with COVID19 your test result should be back in the next 24-48 hours, you may check your results on the [facility] [employer] [facility] Portal if you are Positive you must Quarantine for 5 days Clinical Impressions Clinical Impression: Viral syndrome Stand Alone Forms Stand Alone Forms: Work/School Release Instructions Patient Instructions: Sore Throat, Cough, DI for Viral Syndrome Discharge ED [place]y [place] [facility] [place] General Stated complaint: body aches, sore throat, cough Mode of Arrival: Ambulatory Source of Information: Patient Limitations: No Limitations Time Seen by Provider: 05/02/23 17:46 Description of Symptoms (Recalled from Triage Doc. by RN): PATIENT C/O BODY ACHES, DRY COUGH, EXHAUSTION, AND CHEST CONGESTION X 3 DAYS HEENT Symptoms (Recalled from RN notes): No Resp Symptoms (Recalled from RN notes): Yes Skin Symptoms (Recalled from RN notes): No MS Symptoms (Recalled from RN notes): No Functional Status (Recalled from RN notes): WNL History of Present Illness Provider Complaint: Patient states that her daughter had COVID last week States then yesterday she started with body aches, chills, dry cough, feeling like she couldnt get a deep breath at times and sore throat States that today she was still not feeling well so she came in to get checked Related Data Home Medications Medication Instructions Recorded Confirmed losartan 50 mg tablet 50 mg PO DAILY 05/26/22 05/02/23 linaclotide 72 mcg capsule 72 mcg PO DAILY 05/02/23 05/02/23 (Linzess) Previous Rx's Medication Instructions Recorded norethindrone 1 mg-ethinyl 1 tab PO DAILY #28 tabs 05/26/22 estradiol 10 mcg (24)-iron 10 mcg(2) tablet benzonatate 100 mg capsule 100 mg PO TID PRN cough #30 caps 05/02/23 Allergies Allergy/AdvReac Type Severity Reaction Status Date / Time morphine Allergy Verified 11/13/22 08:26 Penicillins Allergy Verified 11/13/22 08:26 Worker's Comp Is this a Worker's Comp case?: No [facility] Disclaimer: The information contained in this section may have been updated after the patient was seen, as this information can be updated by other users. Medical History High blood pressure Hx of migraines Surgical History H/O LEEP [place] teeth extracted Family History Mother Cancer Other Diabetes Social History Smoking Status: Never smoker alcohol intake: never substance use type: denies use current occupational status: other Travel in the last 8 weeks: None ROS Obtained: Yes All systems reviewed & no additional complaints except as documented and Yes Systems reviewed as appropriate & no additional complaints except as documented Constitutional Constitutional: Reports system reviewed and no additional complaints, except as documented, Reports as per HPI, Reports body ache, Reports chills and Reports fatigue ENT Ears, Nose, Mouth, and Throat: Reports system reviewed and no additional complaints, except as documented, Reports as per HPI and Reports sore throat Cardiovascular Cardiovascular: Reports system reviewed and no additional complaints, except as documented and Reports as per HPI Respiratory Respiratory: Reports system reviewed and no additional complaints, except as documented, Reports as per HPI, Reports shortness of breath (at times feels like she cant get a good breath), Reports cough (dry), Denies hemoptysis, Denies pain on inspiration, Denies pain with cough and Denies wheezing Gastrointestinal Gastrointestingal: Reports system reviewed and no additional complaints, except as documented and as per HPI Endocrine Endocrine: Reports fatigue Allergic/Immunologic Allergic/Immunologic: Denies wheezing Physical Exam General General appearance: alert and in no apparent distress ENT ENT exam: Present mucous membranes moist Expanded ENT Exam Nose exam: Absent sinus tenderness Throat exam: Present tonsillar erythema Respiratory Respiratory exam: Present normal lung sounds bilaterally; Absent respiratory distress, wheezes, accessory muscle use or prolonged expiratory phase Cardiovascular Cardiovascular exam: Present regular rate, normal rhythm and normal heart sounds Neurological Exam Neurological exam: Present alert, oriented X3 and normal gait Medical Decision Making Rehan Inquiry Pt receiving controlled substance: No Rehan was queried for this patient: No Vital Signs: 05/02/23 17:40 Temperature 97.8 F Temperature Source Oral Pulse Rate [Left Brachial] 80 Respiratory Rate 18 Blood Pressure [Left Arm] 125/77 Blood Pressure Mean [Left Arm] 93 Blood Pressure Source [Left Arm] Automatic Cuff Blood Pressure Position [Left Arm] Sitting 02 Sat by Pulse Oximetry 99 Oxygen Delivery Method Room Air Lab Data Lab results reviewed: Yes I reviewed the patient's lab results.
[2023-05-02 18:09] LABS: UTC Strep Screen (Rapid) Negative (Negative)
[2023-05-02 18:09] LABS: UTC Influenza A Antigen Negative (Negative); UTC Influenza B Antigen Negative (Negative)
[2023-05-02 18:29] VITALS: BP 125/77; PULSE 80; RESP 18; TEMP 36.6; O2SAT 99
== END 2023-05-02 18:31 | disposition home or self-care (01) ==
PROVIDERS: Emergency Provider Nurse Practitioner; PCP Family Medicine
DX: U07.1 COVID-19 (principal); R06.02 Shortness of breath; R05.9 Cough, unspecified; R07.0 Pain in throat; R53.83 Other fatigue; M79.18 Myalgia, other site; I10 Essential (primary) hypertension
CPT/HCPCS: 87635; 87804; 87880; 99212; 99214; G0463

== ENCOUNTER 2023-05-14 10:16 | Outpatient (CLI) | payer BC, SELFPAY ==
--- NOTE | 2023-05-14 10:25 | CT_ITS ---
FINAL REPORT TECHNIQUE: Axial CT images of the abdomen and pelvis were obtained before and after the administration of IV contrast. Oral contrast was administered.This study was performed with techniques to keep radiation doses as low as reasonably achievable (ALARA). Individualized dose reduction techniques using automated exposure control or adjustment of mA and/or kV according to the patient''s size were employed. CLINICAL HISTORY: COLON CANCER HX OF COLON RESECTION AUGUST 2022 COMPARISON: 10/10/2022 FINDINGS: Abdomen: The lung bases are clear. The heart is normal in size. The liver has an unremarkable appearance, without evidence of mass or biliary duct dilatation. . The spleen is unremarkable. No adrenal masses present. The pancreas has an unremarkable appearance. Small left renal cysts are identified. The aorta is normal in caliber. There is no free fluid or adenopathy. No mass or abnormal fluid collection is seen. Precontrast images demonstrate no evidence of nephrolithiasis. Pelvis: The appendix is normal. There are postoperative changes at the rectosigmoid junction. The urinary bladder is unremarkable. No inflammatory process is seen. There is no evidence of mass or adenopathy. There is no evidence of bowel obstruction. IMPRESSION: Postsurgical changes. No new abnormality. Reviewed, Interpreted and Dictated by Ivan Figueroa III, MD Transcribed by Madison Wolfe Authenticated and . [facility]
[2023-05-14] MEDS: IOPAMIDOL-370 (76%);100ML BOTTLE 75 ML IV (10:43)
[2023-05-14] MEDS: SODIUM CHLORIDE 0.9% 10ML SYR (RAD ONLY) 10 ML IV (10:43)
== END 2023-05-14 23:59 ==
LOC: RAD 10:16
PROVIDERS: PCP Family Medicine; Visit Provider Internal Medicine Medical Oncology
DX: C18.9 Malignant neoplasm of colon, unspecified (principal)
CPT/HCPCS: 74178; Q9967

== ENCOUNTER 2023-12-17 20:23 | Emergency (ER) | payer BC, SELFPAY ==
[2023-12-17 20:31] VITALS: BP 135/92; PULSE 76; RESP 19; TEMP 36.4; O2SAT 99; BMI 25.8
--- NOTE | 2023-12-17 20:48 | HMH.EDGENADL ---
Discharge Plan Disposition Patient Disposition: Home, Self-Care Prescriptions Prescriptions: New prednisone 20 mg tablet 40 mg PO DAILY 5 Days Qty: 10 0RF No Action losartan 50 mg tablet 50 mg PO DAILY Patient Comments: TAKE 1 TABLET BY MOUTH EVERY DAY norethindrone-e.estradiol-iron 1 mg-10 mcg (24)/10 mcg (2) tablet 1 tab PO DAILY Qty: 28 11RF Referrals Follow up/Referrals: Eliud Greenwood MD [Primary Care Provider] - See instructions Davey Mejia DO [Staff Physician] - See instructions Activity Restrictions/Add. Instructions Additional Instructions/Restrictions: Call your family doctor to establish care for this visit to the emergency department and schedule follow-up within 48 hours to ensure improvement. If you have any worsening of your condition or any other concerning signs or symptoms, return to the emergency department or your primary care doctor for further evaluation. If you continue to have pain, Dr. Mejia information here, he is the orthopedist that we will be able to guide you for further management. Clinical Impressions Clinical Impression: Right wrist pain Print Language Print Language: Scottish Discharge ED Provider: Jah Jacques General Adult HPI General Chief complaint: Extremity Problem,Nontraumatic Stated complaint: Pain in right wrist,no injury Time Seen by Provider: 12/17/23 20:48 Mode of Arrival: Family Vehicle Source of Information: Patient Limitations: No Limitations Description of Symptoms (Recalled from ER Triage Doc. by RN): 43 yo female presents with cc of pain x 2 weeks following working in the garden. Patient states noticed edema, erythema and difficulty with mobility. States she was told she has tendonitis. Used heat/ice and tyl/motrin and noted improvement. Began having sharp pain again and came for eval. History of Present Illness HPI narrative: Please note that above description of symptoms, in this electronic medical record under categorization of recalled from ER triage doctor by RN are reflective of an initial nursing assessment, however, is not reflective of my full history and physical exam that was personally taken and clarified. Consequentially, this preceding description of symptoms, which may include the patient's categorized chief complaint in the EMR, do not reflect my personal clinical impression, and the ultimate description of history of present illness and patient stated complaints should be deferred to this section of the note. Unless stated otherwise or congruent with this section of the note, additional signs, symptoms, or incongruence should be interpreted as inaccurate with my clinical impression. Related Data Home Medications ?Medication ?Instructions ?Recorded ?Confirmed losartan 50 mg tablet 50 mg PO DAILY 05/26/22 06/18/23 Previous Rx's ?Medication ?Instructions ?Recorded norethindrone 1 mg-ethinyl 1 tab PO DAILY #28 tabs 06/18/23 estradiol 10 mcg (24)-iron 10 mcg(2) tablet prednisone 20 mg tablet 40 mg (2 x 20 mg) PO DAILY 5 days 12/17/23 #10 tabs Allergies Allergy/AdvReac Type Severity Reaction Status Date / Time morphine Allergy Verified 06/18/23 10:49 Penicillins Allergy Verified 06/18/23 10:49 [facility] Disclaimer: The information contained in this section may have been updated after the patient was seen, as this information can be updated by other users. Medical History (Updated 12/17/23 @ 20:50 by Jah Jacques MD) High blood pressure Hx of migraines Surgical History (Updated 06/18/23 @ 10:52 by Sada Delacruz CMA) History of bowel resection [place] teeth extracted H/O LEEP Family History Mother Cancer Other Diabetes Social History (Updated 06/18/23 @ 10:53 by Sada Delacruz CMA) Smoking Status: Unknown if ever smoked alcohol intake: never substance use type: denies use current occupational status: other [employer]
--- NOTE | 2023-12-17 20:59 | PC.NURSE ---
put right wrist splint on pt, explained on how to remove and how to properly put back on. pt did not have any questions or concerns for me at this time. pt in now hooked back up to the vitals machine.
[2023-12-17 21:04] VITALS: BP 135/95; PULSE 72; RESP 15; TEMP 36.6; O2SAT 97
== END 2023-12-17 21:05 | disposition home or self-care (01) ==
PROVIDERS: Emergency Provider Emergency Medicine; PCP Family Medicine
DX: M25.531 Pain in right wrist (principal)
CPT/HCPCS: 99283